=== PATIENT | male | born 1985 | race Caucasian/White ===

== ENCOUNTER 2021-07-03 12:28 | Emergency (ER) | payer OTHER, SELFPAY ==
--- NOTE | 2021-07-03 12:35 | ED.URI ---
HPI - URI/Sore Throat General Chief Complaint: Upper Respiratory Infection Stated Complaint: Cough,Congestion,Sore Throat,Sinus Time Seen by Provider: 07/03/21 12:45 Source: patient, RN notes reviewed and old records reviewed Mode of arrival: ambulatory Limitations: no limitations History of Present Illness HPI Narrative: 35 year old male presents to [facility] care with complaints of cough, sore throat, sinus pressure and drainage since Friday. Patient states that he has history of chronic sinus problems, usually gets sinus infections 3-4 times yearly. He reports that he has seen an ENT physician and he recommended sinus surgery but he is still tying to decide if he wants to get it done. Patient denies any known fevers chills or sweats or any body aches. Patient states that he has taken some Zainab [place] cold and sinus OTC for his symptoms. Patient did have COVID last July and has had Covid Vaccinations. MD elicited complaint: cough, sore throat, rhinorrhea and nasal congestion Related Data Allergies Allergy/AdvReac Type Severity Reaction Status Date / Time No Known Allergies Allergy Verified 07/03/21 12:51 Review of Systems Review of Systems: CONSTITUTIONAL: Denies fever, chills, or sweats. EYES: Denies visual changes, redness, or discharge. ENT: Positive for rhinorrhea, congestion, facial pressure, sore throat, no otalgia. CARDIOVASCULAR: Denies chest pain, palpitations, or edema. RESPIRATORY: Positive for cough denies dyspnea. GASTROINTESTINAL: Denies abdominal pain, nausea, vomiting, or diarrhea. GENITOURINARY: Denies dysuria or hematuria. SKIN: Denies rash or itching. MUSCULOSKELETAL: Denies back pain, joint pain, or myalgia. NEUROLOGIC: positive for frontal headache and maxillary pressure, no numbness, or weakness. PSYCHIATRIC: Denies anxiety or depression. All systems reviewed & are unremarkable except as noted in HPI and below PMFSH Past Medical History Medical History (Updated 07/03/21 @ 13:11 by Ivory Mendieta NP) Sinusitis Sleep apnea with use of continuous positive airway pressure (CPAP) Surgical History Surgical History (Updated 07/03/21 @ 13:12 by Ivory Mendieta NP) No history of previous surgery Family History Family History Father Hypertension Mother Family history of lupus erythematosus Social History Social History (Updated 07/03/21 @ 13:12 by Ivory Mendieta NP) Smoking status: Never smoker Alcohol intake: current Substance use: never Living arrangements: with family Occupation/Education: occupation Additional occupation/education comments: [employer] Gender identity (if verbalized by the patient): Male Comments At time of signature, agree with nursing past medical, surgical, social and family history. There is no relevant family history pertinent to the presenting complaint Exam Narrative: GENERAL: Well-appearing, well-nourished, and in no acute distress. HEAD: Normocephalic, atraumatic. EYES: PERRLA and EOMI. ENT: Nares red with turbinates red and swollen,clear rhinorrhea no epistaxis. Mucous membranes moist.TM's normal with good light reflex, throat red with uvula swollen, tonsils red and swollen with white exudates on left tonsil, post nasal drainage noted. NECK: Supple. no lymphadenopathy CHEST: Clear to auscultation. No respiratory distress. cough at times productive, SAO2 98% on room air HEART: Regular rate and rhythm. No murmur heard. Normal peripheral pulses. ABDOMEN: Soft, nontender, nondistended, normal active bowel sounds. EXTREMITIES: Normal range of motion. No edema. SKIN: Warm, dry, no rash. NEURO: No focal deficits. Alert and oriented x3. MDM - URI/Sore Throat Differential Diagnosis Differential diagnosis: Likely upper respiratory infection, otitis media, sinusitis, viral infection and pharyngitis Medical Records Attestation: I reviewed the patient's medical records. Lab Data
[2021-07-03 12:38] VITALS: BP 130/80; PULSE 86; RESP 16; TEMP 36.6; O2SAT 98
== END 2021-07-03 13:10 | disposition home or self-care (01) ==
PROVIDERS: Emergency Provider Registered Nurse
DX: J32.9 Chronic sinusitis, unspecified (principal); G47.30 Sleep apnea, unspecified; Z20.822 Contact with and (suspected) exposure to COVID-19
CPT/HCPCS: 87081; 87426; 87880; 99213; C9803; G0463

== ENCOUNTER 2022-01-11 17:08 | Emergency (ER) | payer OTHER, SELFPAY ==
[2022-01-11 17:20] VITALS: BP 129/85; PULSE 91; RESP 18; TEMP 36.8; O2SAT 99
--- NOTE | 2022-01-11 17:42 | ED.URI ---
HPI - URI/Sore Throat General Chief Complaint: Upper Respiratory Infection Stated Complaint: sorethroat,cough,nasal congestion Source: patient Mode of arrival: ambulatory Limitations: no limitations History of Present Illness HPI Narrative: 36-year-old male presents to [facility] with complaints of nasal congestion, postnasal drip, sore throat, dry cough and sinus pressure for the past 2 days. Patient reports history of sinus infections and does see ENT. Patient has been taking [id number] Zainab-[place] and Flonase with minimal relief. Patient reports that his son was recently ill with cold-like symptoms. Patient denies recent travel. Patient is a non-smoker. MD elicited complaint: rhinorrhea, nasal congestion and sinus pain Onset (ago): day(s) (3) Able to tolerate fluids by mouth: Yes Treatments prior to arrival: cold medicine Related Data Allergies Allergy/AdvReac Type Severity Reaction Status Date / Time No Known Allergies Allergy Verified 01/11/22 17:36 Review of Systems Constitutional: Constitutional: Denies chills, Denies fatigue, Denies fever(s) and Denies weakness ENT: Denies dizziness, Reports nasal congestion and Denies sore throat Comments: Sinus pressure, postnasal drainage Respiratory: Respiratory: Reports cough, Denies dyspnea and Denies wheezing Gastrointestinal: Gastrointestinal: Denies diarrhea, Denies nausea and Denies vomiting Integumentary/Breasts: Skin/Breast: Denies rash PMFSH Past Medical History Medical History Sinusitis Sleep apnea with use of continuous positive airway pressure (CPAP) Surgical History Surgical History No history of previous surgery Family History Family History Father Hypertension Mother Family history of lupus erythematosus Social History Social History Smoking status: Never smoker Alcohol intake: current Substance use: never Additional occupation/education comments: [employer] Gender identity (if verbalized by the patient): Male Comments At time of signature, I agree with nursing past medical, surgical, social and family history. There is no relevant family history pertinent to the presenting complaint. Exam Const: General: no acute distress Nutritional Appearance: well nourished Orientation/consciousness: patient oriented x3 HENMT: Head: normal to inspection Ears: external ears normal and TM's normal bilaterally Face and sinus: sinuses nontender Mouth: Yes moist mucous membranes Throat: posterior oropharynx normal and uvula midline Other: Mild nasal congestion noted. Neck: Neck: normal visual inspection Resp: Effort & Inspection: normal respiratory effort and not tachypneic Auscultation: clear to auscultation bilaterally Cardio: Rate: regular rate Rhythm: regular rhythm Skin: General skin exam: normal color Rashes: no rashes Wounds: no wounds Neuro: General: patient oriented x3 and moves all extremities Speech: normal speech Psych: Appearance: grossly normal Mental Status: mental status grossly normal Affect: normal affect Thought content: Yes Normal thought content present Course Course Level of Care: Express Care Visit Vital Signs Vital signs: Vital Signs Temperature 36.8 C 01/11/22 17:20 Pulse Rate 91 01/11/22 17:20 Respiratory Rate 18 01/11/22 17:20 Blood Pressure 129/85 01/11/22 17:20 Pulse Oximetry 99 01/11/22 17:20 Temperature 36.8 C 01/11/22 17:20 Pulse Rate 91 01/11/22 17:20 Respiratory Rate 18 01/11/22 17:20 Blood Pressure 129/85 01/11/22 17:20 Pulse Oximetry 99 01/11/22 17:20 MDM - URI/Sore Throat MDM Narrative Medical decision making narrative: Patient agrees to continue Flonase daily. We will add Claritin daily. Patient agrees
== END 2022-01-11 17:50 | disposition home or self-care (01) ==
PROVIDERS: Emergency Provider Nurse Practitioner Family
DX: B34.9 Viral infection, unspecified (principal)
CPT/HCPCS: 87081; 87880; 99213; G0463

== ENCOUNTER 2023-05-20 13:19 | Emergency (ER) | payer OTHER, SELFPAY ==
--- NOTE | 2023-05-20 13:32 | ED.URI ---
HPI - URI/Sore Throat General Chief Complaint: Upper Respiratory Infection Stated Complaint: Congestion,Headache,Cough Time Seen by Provider: 05/20/23 13:32 Source: patient Mode of arrival: ambulatory Limitations: no limitations History of Present Illness HPI Narrative: German is a 37-year-old male patient presenting to the clinic today with complaints of headache, cough, and congestion x1 week. He reports he gets sinus infections twice yearly. Reports he has tried ctqr-nog-ivlahxm decongestant and Zainab-[place] for symptoms. MD elicited complaint: sore throat and nasal congestion Related Data Allergies Allergy/AdvReac Type Severity Reaction Status Date / Time No Known Allergies Allergy Verified 05/20/23 13:46 Review of Systems Review of Systems: Pertinent positives per HPI. Patient denies any fever, chills, rash, visual changes, dizziness,shortness of breath, chest pain, palpitations, nausea, vomiting, diarrhea, constipation, abdominal pain, or any urinary issues. PMFSH Past Medical History Medical History Sinusitis Sleep apnea with use of continuous positive airway pressure (CPAP) Surgical History Surgical History No history of previous surgery Family History Family History Father Hypertension Mother Family history of lupus erythematosus Social History Social History Smoking status: Never smoker Alcohol intake: current Substance use: never Living arrangements: with family Occupation/Education: occupation Additional occupation/education comments: [employer] Gender identity (if verbalized by the patient): Male Comments At the time of my signature, I reviewed and agree with the nursing past medical, surgical, social, and family history. There is no relevant family history pertinent to the patient complaint. Exam Narrative: General: Well-developed, well nourished, in no apparent distress Head: Normocephalic, atraumatic Eyes: Pupils equally round and reactive to light bilaterally, EOM intact, sclera and conjunctive clear, no discharge, lids normal Ears: TMs intact and congestion, ear canals clear, no drainage, grossly hearing normal. Nose: Nares patent, clear nasal discharge, moderate to severe inflammation, maxillary and frontal sinus tenderness. Mouth: Oral pharynx without lesions or masses, good dentition, MMM. Neck: Supple, trachea midline, no enlargement of anterior or posterior cervical nodes, no thyroid masses or goiter palpable. Cardio: Regular rate and rhythm, s1 and s2 normal, no murmur appreciated. Resp: Clear to auscultation bilaterally, no rhonchi, rales, wheezing or rubs Course Course Emergency Course: Portions of this record may have been created with voice recognition software. Level of Care: Express Care Visit Vital Signs Vital signs: Vital signs reviewed MDM - URI/Sore Throat MDM Narrative Medical decision making narrative: At the time of visit patient is resting comfortably on exam table. I suspect patient has URI. Will send in prescription for some prednisone. Supportive measures were discussed with the patient he voiced understanding discharge instructions and agrees to treatment plan. Differential Diagnosis Differential diagnosis: Likely upper respiratory infection, otitis media, sinusitis, viral infection, bronchitis, influenza, pharyngitis and other (COVID) Discharge Plan Discharge Clinical Impression: Upper respiratory infection Qualifiers: URI type: unspecified viral URI Qualified Code(s): J06.9 - Acute upper respiratory infection, unspecified Patient Disposition: Home, Self-Care Condition: Stable Instructions: Antibiotic Form, Upper Respiratory Infection (ED) Additional Instructions: Take prescription
[2023-05-20 13:40] VITALS: BP 133/77; PULSE 98; RESP 18; TEMP 36.1; O2SAT 98
== END 2023-05-20 13:52 | disposition home or self-care (01) ==
PROVIDERS: Emergency Provider Nurse Practitioner Family
DX: J06.9 Acute upper respiratory infection, unspecified (principal); G47.30 Sleep apnea, unspecified
CPT/HCPCS: 99213; G0463

== ENCOUNTER 2023-09-01 13:05 | Emergency (ER) | payer OTHER, SELFPAY ==
[2023-09-01 13:37] VITALS: BP 128/88; PULSE 108; RESP 18; TEMP 36.2; O2SAT 100
--- NOTE | 2023-09-01 14:46 | ED.EYEPROB ---
HPI - Eye Problem General Chief complaint: Eye Problems Stated complaint: eye irritation Time Seen by Provider: 09/01/23 14:42 Source: patient and RN notes reviewed Mode of arrival: ambulatory Limitations: no limitations History of Present Illness HPI Narrative: Patient presents today complaining of itching, redness, and mild drainage from the right eye that started this morning. Over the past week, his , daughter, and son have all been diagnosed with pinkeye. Denies vision changes. He does not wear contacts. Related Data Allergies Allergy/AdvReac Type Severity Reaction Status Date / Time No Known Allergies Allergy Verified 09/01/23 14:28 Review of Systems Review of Systems: CONSTITUTIONAL: Denies body aches, fever, chills, or sweats. EYES: Denies visual changes. + right eye redness and discharge ENT: Denies rhinorrhea, congestion, sore throat, or otalgia. CARDIOVASCULAR: Denies chest pain, palpitations, or edema. RESPIRATORY: Denies cough or dyspnea. GASTROINTESTINAL: Denies abdominal pain, nausea, vomiting, or diarrhea. GENITOURINARY: Denies dysuria or hematuria. SKIN: Denies rash, itching, or wounds. MUSCULOSKELETAL: Denies back pain, joint pain, or myalgia. NEUROLOGIC: Denies headache, numbness, tingling, or weakness. PSYCH: Denies depression or anxiety. ON LICENSE OF [facility] Past Medical History Medical History Sinusitis Sleep apnea with use of continuous positive airway pressure (CPAP) Surgical History Surgical History No history of previous surgery Family History Family History Father Hypertension Mother Family history of lupus erythematosus Social History Social History Smoking status: Never smoker Alcohol intake: current Substance use: never Living arrangements: with family Occupation/Education: occupation Additional occupation/education comments: [employer] Gender identity (if verbalized by the patient): Male Comments At time of signature, I have reviewed and agree with nursing past medical, surgical, social and family history unless otherwise noted. Please see nursing chart for further information. There is no relevant family history pertinent to the presenting complaint Exam Narrative: GENERAL: Well-appearing, well-nourished, and in no acute distress. HEAD: Normocephalic, atraumatic. EYES: EOMI. PERRL. Left eye normal. Right eye: mildly injected conjunctiva with mild chemosis. No active drainage at this time. Bilateral lids and lashes normal. ENT: Mucous membranes pink and moist. NECK: Normal AROM. CHEST: No respiratory distress. EXTREMITIES: Normal range of motion. No edema. SKIN: Warm, dry, no rash. Capillary refill normal. Normal skin turgor. NEURO: No focal deficits. Alert and oriented x3. Gait steady. PSYCH: Normal affect. No signs of depression or anxiety. Course Course Level of Care: Express Care Visit Vital Signs Vital signs: Vital Signs Temperature 97.2 F L 09/01/23 13:37 Pulse Rate 108 H 09/01/23 13:37 Respiratory Rate 18 09/01/23 13:37 Blood Pressure 128/88 09/01/23 13:37 Pulse Oximetry 100 09/01/23 13:37 Oxygen Delivery Room Air 09/01/23 13:37 Temperature 97.2 F L 09/01/23 13:37 Pulse Rate 108 H 09/01/23 13:37 Respiratory Rate 18 09/01/23 13:37 Blood Pressure 128/88 09/01/23 13:37 Pulse Oximetry 100 09/01/23 13:37 Oxygen Delivery Room Air 09/01/23 13:37 Reviewed MDM - Eye Problem MDM Narrative Medical decision making narrative: Patient has been diagnosed with right-sided conjunctivitis. Prescription for Polytrim sent to pharmacy. Anticipatory guidance given. Differential Diagnosis Differential diagnosis: Likely corneal abrasion, conjunctivitis a
== END 2023-09-01 14:53 | disposition home or self-care (01) ==
PROVIDERS: Emergency Provider Nurse Practitioner
DX: H10.89 Other conjunctivitis (principal)
CPT/HCPCS: 99213; G0463

== ENCOUNTER 2024-05-11 13:20 | Emergency (ER) | payer OTHER, SELFPAY ==
[2024-05-11 13:32] VITALS: BP 128/80; PULSE 70; RESP 16; TEMP 36.5; O2SAT 99
--- NOTE | 2024-05-11 13:56 | ED.URI ---
HPI - URI/Sore Throat General Chief Complaint: Upper Respiratory Infection Stated Complaint: sinus congestion Time Seen by Provider: 05/11/24 13:57 Source: patient, RN notes reviewed and old records reviewed Mode of arrival: ambulatory Limitations: no limitations History of Present Illness HPI Narrative: 38-year-old male presents to the [facility] with complaints of sinus pain, pressure, runny nose, tearing eyes for approximately 10 days. Patient reports taking multiple mvad-wjc-giissqj products with no relief. Related Data Allergies Allergy/AdvReac Type Severity Reaction Status Date / Time No Known Allergies Allergy Verified 05/11/24 13:27 Review of Systems Review of Systems: All systems reviewed & are unremarkable except as noted in HPI and below Constitutional: Constitutional: Reports no additional constitutional complaints Eyes: Eyes: Reports no additional eye complaints ENT: Reports as per HPI, Reports facial pain, Reports nasal congestion, Reports nasal discharge and Reports sinus pain Cardiovascular: Cardiovascular: Reports no additional cardiovascular complaints, Denies chest pain and Denies dyspnea Respiratory: Respiratory: Reports no additional respiratory complaints, Denies chest congestion, Denies cough and Denies dyspnea Gastrointestinal: Gastrointestinal: Reports no additional gastrointestinal complaints, Denies abdominal pain, Denies nausea and Denies vomiting Musculoskeletal: Musculoskeletal: Reports no additional musculoskeletal complaints Integumentary/Breasts: Skin/Breast: Reports system reviewed and no additional complaints, except as docu Neurologic: Reports system reviewed and no additional complaints, except as documented Psychiatric: Psychiatric: Reports no additional psychiatric complaints Allergic/Immunologic: Allergic/Immunologic: Reports no additional allergic/immunologic complaints PMFSH Past Medical History Medical History Sinusitis Sleep apnea with use of continuous positive airway pressure (CPAP) Surgical History Surgical History No history of previous surgery Family History Family History Father Hypertension Mother Family history of lupus erythematosus Social History Social History Smoking status: Never smoker Alcohol intake: current Substance use: never Living arrangements: with family Occupation/Education: occupation Additional occupation/education comments: [employer] Gender identity (if verbalized by the patient): Male Comments At the time of my signature, I reviewed and agree with the nursing past medical, surgical, social, and family history. There is no relevant family history pertinent to the patient complaint. Exam Const: General: cooperative, healthy appearing, comfortable, no acute distress, well developed, alert and well nourished Nutritional Appearance: well nourished Orientation/consciousness: patient oriented x3 Limitations: no limitations HENMT: Head: normal to inspection Ears: hearing grossly normal bilaterally, external ears normal, TM's normal bilaterally, EAC's normal, mastoids normal and no periauricular adenopathy Face/Nose/Sinus: Normal external nose present, Normal nares present, Normal nasal mucous membranes and turbinates present, normal facial exam and face symmetric Face and sinus: normal facial exam, face symmetric and sinus tenderness frontal and maxillary Mouth: Yes Normal oral and palatal mucosa present, Yes lip normal and Yes tongue normal Throat: posterior oropharynx normal, tonsils normal and uvula midline Eyes: General: appearance normal, both eyes and all related structures Alignment and Position: alignment normal Periorbital: periorbital findings normal Pupils: Equa
== END 2024-05-11 14:07 | disposition home or self-care (01) ==
PROVIDERS: Emergency Provider Nurse Practitioner; Referring Provider Emergency Medicine
DX: J32.9 Chronic sinusitis, unspecified (principal); Z86.16 Personal history of COVID-19
CPT/HCPCS: 99213; G0463

== ENCOUNTER 2024-10-14 11:57 | Emergency (ER) | payer OTHER, SELFPAY ==
[2024-10-14 12:07] VITALS: BP 125/83; PULSE 87; RESP 18; TEMP 36.3; O2SAT 100
--- NOTE | 2024-10-14 12:38 | ED_ITS ---
HPI - URI/Sore Throat General Chief Complaint: Upper Respiratory Infection Stated Complaint: flu like symptoms History of Present Illness HPI Narrative: patient is a 38-year-old male, without significant past medical history, presents to [facility] with a 2 day history of URI symptoms, including nasal congestion, ear pressure, sore throat dry cough and fever 101 F last night. His only known sick contact is his who is an RN and was sick over the weekend. He is taking ibuprofen for fever reduction with adequate relief. he denies chest pain shortness of breath, has no abdominal pain nausea vomiting or diarrhea. He is not vaccinated for influenza this season. He denies any additional associated symptoms modifying factors Related Data Allergies Allergy/AdvReac Type Severity Reaction Status Date / Time No Known Allergies Allergy Verified 10/14/24 12:39 Review of Systems Constitutional: Constitutional: Reports as per HPI ENT: Reports system reviewed and no additional complaints, except as documented and Reports as per HPI Respiratory: Respiratory: Reports as per HPI [facility] Past Medical History Medical History Sleep apnea with use of continuous positive airway pressure (CPAP) Sinusitis Surgical History Surgical History No history of previous surgery Family History Family History Father Hypertension Mother Family history of lupus erythematosus Social History Social History Smoking status: Never smoker Alcohol intake: current Substance use: never Living arrangements: with family Occupation/Education: occupation Additional occupation/education comments: [employer] Gender identity (if verbalized by the patient): Male Exam Const: General: healthy appearing Nutritional Appearance: well nourished Orientation/consciousness: patient oriented x3 Limitations: no limitations Other: patient sounds nasally congested when speakin HENMT: Head: normal to inspection Ears: external ears normal and TM's normal bilaterally Face/Nose/Sinus: Normal external nose present Face and sinus: normal facial exam and sinuses nontender Mouth: Yes Normal oral and palatal mucosa present and Yes lip normal Teeth and gingiva: dentition normal Throat: posterior oropharynx normal and uvula midline Eyes: Conjunctivae: conjunctivae normal EOM: EOMs intact bilaterally Neck: Neck: normal visual inspection, no lymphadenopathy and no meningeal signs Resp: Effort & Inspection: normal respiratory effort Auscultation: clear to auscultation bilaterally Cardio: Rate: regular rate Rhythm: regular rhythm Skin: General skin exam: normal color Rashes: no rashes Wounds: no wounds Neuro: General: patient oriented x3 Cranial nerves: Yes Nystagmus not present Speech: normal speech Gait exam (Neuro): Normal gait present Course Course Emergency Course: COVID/influenza screening completed Level of Care: [facility] Care Visit ([id number]) Vital Signs Vital signs: Vital Signs Temperature 36.3 C L 10/14/24 12:07 Pulse Rate 87 10/14/24 12:07 Respiratory Rate 18 10/14/24 12:07 Blood Pressure 125/83 10/14/24 12:07 Pulse Oximetry 100 10/14/24 12:07 Oxygen Delivery Room Air 10/14/24 12:07 Temperature 36.3 C L 10/14/24 12:07 Pulse Rate 87 10/14/24 12:07 Respiratory Rate 18 10/14/24 12:07 Blood Pressure 125/83 10/14/24 12:07 Pulse Oximetry 100 10/14/24 12:07 Oxygen Delivery Room Air 10/14/24 12:07 MDM - URI/Sore Throat MDM Narrative Medical decision making narrative: PATIENT IS INFLUENZA A POSITIVE, COVID-19 NEGATIVE, WILL TREAT WITH TAMIFLU HE IS WITHIN THE WINDOW OF EFFICACY, PROMETHAZINE DM WILL BE ADDED FOR ADDITIONAL SYMPTOM RELIEF. HE IS ENCOURAGED TO CONTROL FEVERS AT HOME, PUSH FLUIDS AND REST. MUST BE FEVER FREE WITHOUT FEVER REDUCING MEDICATION TO RETURN TO WORK FOR 24 HOURS Lab Data Labs: Lab Results 10/14/24 Range/Units 12:51 POC Influenza A Ag Positive (Negative) POC Influenza B Ag Negative (Negative) POC SARS CoV-2 Ag Negative (Negative) Discharge Plan Discharge Clinical Impression: Influenza Patient Disposition: Home, Self-Care Condition: Stable Instructions: Antibiotic Form, Influenza (ED) Additional Instructions: PUSH FLUIDS, REST, CONTROL FEVERS WITH TYLENOL AND/OR IBUPROFEN DIRECTED [id number]. COMPLETE TAMIFLU IF YOU ARE ABLE TO FIND A MEDICATION AT THE LOCAL PHARMACY, PROMETHAZINE DM OR PROVIDE ADDED SYMPTOM RELIEF. TAKE DIRECTED. FOLLOW UP WITH YOUR PRIMARY DOCTOR IN 3-5 DAYS IF FEVERS ARE NOT STARTING TO RESOLVE Patient Language: Syriac Prescriptions: New oseltamivir [Tamiflu] 75 mg capsule 75 mg PO Q12H 5 Days Qty: 10 0RF promethazine-DM 6.25-15 mg/5 mL syrup 5 ml PO Q4-6H PRN (Reason: cough) Qty: 118 0RF Follow-up/Referrals: PHYSICIAN,FLAVOR MAKER [Primary Care Provider] - Stand Alone Forms: Work/School Release IP Time of Disposition: 13:03
--- OUTSIDE RECORDS SUMMARY | 2024-10-14 12:50 | XMS_ITS | Clinical Summary ---
Author Organization [facility] Address [address] [place] [address]. [place] [address] [place] [address] Care Team Providers Care Purchasing Assistant Name Role Phone Alex Castillo MD Primary Care Provider [phone] Allergies No known active allergies Medications methocarbamol 750 MG TabIndications: Chronic left-sided low back pain with left-sided sciatica Take 2 tablets (1,500 mg total) by mouth 3 (three) times daily. 90 tablet 1 06/23/2019 Active Active Problems No known active problems Immunizations Name Administration Dates Next Due Fluzone 6 Months+ Quad (0.5 mL Prefilled Syringe ) 06/23/2019 Family History Medical History Relation Comments Hypertension Father Lupus Mother Relation Status Comments Father Alive Mother Alive Social History Tobacco Use Types Packs/Day Years Used Date Smoking Tobacco: Former Cigarettes Q uit: 2009 Smokeless Tobacco: Never Alcohol Use Standard Drinks/Week Comments Yes 0 (1 standard drink = 0.6 oz pur e alcohol) AUDIT-C Answer Date Recorded Frequency of Alcohol Consumption 2-4 times a fri10/29/2018 Average Number of Drinks Not on file 019 Frequency of Binge Drinking Not on file 10/16 Education Answer Date Recorded What is the highest level of school you have completed or the highest degree you have received? 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 on file Not on file Not on file Last Filed Vital Signs Vital Sign Reading Time Taken Comments Blood Pressure 112/76 08/02/2019 3:16 PM [employer] Pulse 76 08/02/2019 3:16 PM [employer] Temperature 36.7 ??C (98 ??F) 06/23/2019 3:03 PM CDT Respiratory Rate 18 06/23/2019 3:03 PM CDT Oxygen Saturation 98% 06/23/2019 3:03 PM CDT Inhaled Oxygen Concentration - - Weight 78 kg (172 lb) 08/02/2019 3:16 PM [employer] Height 170.2 cm (5' 7 ) 08/02/2019 3:16 PM [employer] Body Mass Index 26.94 08/02/2019 3:16 PM [employer] Plan of Treatment Health Maintenance Due Date Last Done Comments Annual Physical 1989 Hepatitis C 2004 DTaP, Tdap and Td Vaccines (1 - Tdap) 2005 03/29/1992, 01/14/1990, 05/03/1987, Additional history exists Hepatitis B Vaccines (1 of 3 - 19+ 3-dose series) 2005 COVID-19 Vaccine ( season) 2024 Influenza Adult (#1) 2024 06/23/2019 HPV Vaccines Aged Out No longer eligi ble based on patient's age to complete this topic Meningococcal B Vaccine Aged Out No l onger eligible based on patient's age to complete this topic Meningococcal Vaccine Aged Out No lizette jorge a eligible based on patient's age to complete this topic Pneumococcal Vaccine: Pediatrics (0 to 5 Years) and At-Risk Patients (6 to 64 Years) Aged Out No longer eligible based on patient's age to complete this topic RSV Immunizations Under 20 Months Aged Out No longer eligible based on patient's age to complete this topic Insurance [employer] [facility] Member Subscriber Plan / Payer (Ef fective 2012-Present) Name:German Kennedy Relation to Subscriber:Self Name:German Kennedy Payer ID:Not on file Group ID:Not on file Type:Not on file Address: [facility] [id number] [place] [id number] Care Teams Purchasing Assistant Relationship Specialty Start Date End Date Alex Castillo MD PCP - General INTERNAL MEDICINE 10/28/18
[2024-10-14 12:53] LABS: EDCOVIDSCREEN Negative (Negative); EDINFLUASCREEN Positive (Negative); EDINFLUBSCREEN Negative (Negative)
== END 2024-10-14 13:09 | disposition home or self-care (01) ==
PROVIDERS: Emergency Provider Nurse Practitioner Family
DX: J11.1 Influenza due to unidentified influenza virus with other respiratory manifestations (principal); Z20.822 Contact with and (suspected) exposure to COVID-19
CPT/HCPCS: 87426; 87804; 99213; G0463